=== PATIENT | female | born 1990 | race Caucasian/White ===

== ENCOUNTER 2018-08-21 14:59 | Outpatient (REF) | payer BC, SELFPAY ==
--- NOTE | 2018-08-21 14:20 | PAPFT_PTH ---
PATIENT: Maggi Wasserman [id number] AGE/SX: 27/F ROOM: RE08/21/[address]: Jack Boston V : 1990 BED: DIS: 08/21/2018 SPEC #: [id number] RECD: 08/22/18 12:50 STATUS: YAN WILLIE #: [id number] RUCHI: 08/21/18 14:[address]: Jack Boston V [facility] Cytology RECD BY: Erica Andres ENTERED: 08/22/18 12:51 SP TYPE: PAPFT OTHR DR: Aditi Franco Tissues: 1 - CX/ENDOCX FOR PAP SMEARS Procedures: PAP THIN PREP/[facility] Screening HPV DNA PROBE Comments: [id number] (CHLAMYDIA/GC)
[2018-08-21 21:25] LABS: Anion Gap 10.3 mmol/L (3-11); BUN 14 mg/dL (7-18); CO2 28.7 mmol/L (21.0-32.0); CREATININE 0.69 mg/dL (0.55-1.02); Calcium 9.2 mg/dL (8.5-10.1); Chloride 101 mmol/L (98-107); Glucose 82 mg/dL (70-100); Potassium 3.8 mmol/L (3.5-5.1); Sodium 140 mmol/L (136-145)
[2018-08-23 13:16] LABS: Chlamydia Result Negative; GC Result Negative; Specimen Description SEE COMMENTS
== END 2018-08-21 15:19 ==
LOC: NCHCN 14:59
PROVIDERS: PCP Physician Assistant Medical; Visit Provider Physician Assistant Medical
DX: I10 Essential (primary) hypertension (principal); Z11.3 Encounter for screening for infections with a predominantly sexual mode of transmission; Z12.4 Encounter for screening for malignant neoplasm of cervix; Z11.51 Encounter for screening for human papillomavirus (HPV); Z01.419 Encounter for gynecological examination (general) (routine) without abnormal findings
CPT/HCPCS: 80048; 87491; 87591; 88142; 87624

== ENCOUNTER 2020-01-15 11:45 | Outpatient (REF) | payer OTHER, SELFPAY ==
[2020-01-15 19:47] LABS: Abs Immature Grans 0.02 k/cumm (0.0-0.09); Absolute Basophil Count 0.02 k/cumm (0.0-0.2); Absolute Eosinophil Count 0.18 k/cumm (0.0-0.7); Absolute Lymphocyte Count 3.27 k/cumm (1.2-3.4); Absolute Monocyte Count 0.52 k/cumm (0.11-0.7); Absolute Neutrophil Count 5.42 k/cumm (1.2-6.7); Basophils % 0.2; Eosinophils % 1.9; HGB 15.1 g/dL (12.0-15.5); Immature Grans % 0.2 %; Lymphocytes % 34.7; Mean Corp. HGB Concentration 34.3 g/dL (32.0-36.0); Mean Corpuscular Hemoglobin 31.3 pg (27.0-33.0); Mean Corpuscular Volume 91.1 fL (80-95); Mean Platelet Volume 10.4 fL (8.0-11.0); Monocytes % 5.5; Neutrophils % 57.5; Platelet Count 358 x1000/uL (130-400); RBC 4.83 m/cumm (4.00-5.20); RBC Distribution Width 12.2 % (11.7-14.6); White Blood Cell Count 9.43 k/cumm (4.4-10.8)
[2020-01-15 20:28] LABS: ALT 28 U/L (14-59); AST 17 U/L (15-37); Albumin 4.3 g/dL (3.4-5.0); Alkaline Phosphatase 77 U/L (46-116); Anion Gap 11.8 mmol/L (3-11); BUN 15 mg/dL (7-18); Bilirubin, Total 0.5 mg/dL (0.2-1.0); CO2 26.2 mmol/L (21.0-32.0); CREATININE 0.62 mg/dL (0.55-1.02); Calcium 9.5 mg/dL (8.5-10.1); Calculated LDL 127 mg/dL (<100); Chloride 101 mmol/L (98-107); Cholesterol 222 mg/dL (<200); Glucose 88 mg/dL (74-106); HDL Cholesterol 79 mg/dL (40-60); Potassium 4.1 mmol/L (3.5-5.1); Sodium 139 mmol/L (136-145); TSH (W/Ref FT4) 1.79 uIU/mL (0.36-3.74); Total Protein 7.8 g/dL (6.4-8.2); Triglyceride 83 mg/dL (<150)
== END 2020-01-15 12:05 ==
LOC: NCHCN 11:45
PROVIDERS: PCP Physician Assistant Medical; Visit Provider Physician Assistant
DX: Z00.00 Encounter for general adult medical examination without abnormal findings (principal); I10 Essential (primary) hypertension
CPT/HCPCS: 80053; 80061; 84443; 85025

== ENCOUNTER 2020-04-26 19:48 | Outpatient (REF) | payer OTHER, SELFPAY ==
[2020-04-30 16:40] LABS: Patient Race White; SARS-CoV-2 RNA Undetected (Undetected); SARS-CoV-2 Specimen Source Nasal
== END 2020-04-26 20:08 ==
LOC: NCHCN 19:48
PROVIDERS: PCP Physician Assistant Medical; Visit Provider Nurse Practitioner Family
DX: Z20.828 Contact with and (suspected) exposure to other viral communicable diseases (principal)
CPT/HCPCS: U0003

== ENCOUNTER 2021-03-01 16:02 | Outpatient (REF) | payer OTHER, SELFPAY ==
[2021-03-01 19:45] LABS: Anion Gap 10.2 mmol/L (3-11); BUN 8 mg/dL (7-18); CO2 26.8 mmol/L (21.0-32.0); CREATININE 0.7 mg/dL (0.55-1.02); Calcium 9.5 mg/dL (8.5-10.1); Chloride 104 mmol/L (98-107); Glucose 96 mg/dL (74-106); Sodium 141 mmol/L (136-145)
[2021-03-03 10:52] LABS: HIV-1/2 Ag & Ab Screen Negative (Negative)
[2021-03-03 11:22] LABS: Hepatitis C Ab w Rflx HCV PCR Negative (Negative)
== END 2021-03-01 16:03 | disposition home or self-care (01) ==
LOC: NCHCN 16:02
PROVIDERS: PCP Physician Assistant Medical; Visit Provider Physician Assistant
DX: I10 Essential (primary) hypertension (principal); W46.1XXD Contact with contaminated hypodermic needle, subsequent encounter
CPT/HCPCS: 80048; 86803; 87389

== ENCOUNTER 2021-10-05 11:00 | Outpatient (REF) | payer OTHER, SELFPAY ==
--- NOTE | 2021-10-05 13:30 | PAPFT_PTH ---
PATIENT: Maggi Wasserman I LOC: [facility] U#:[id number] AGE/SX: 30/F ROOM: RE10/05/[address]: Cristin Field : 1990 BED: DIS: 10/05/2021 SPEC #: [id number] RECD: 10/06/21 12:44 STATUS: YAN REKassi #: [id number] RUCHI: 10/05/21 13:[address]: Cristin Field DEPT: [facility] Cytology RECD BY: Erica Andres ENTERED: 10/06/21 12:45 SP TYPE: PAPFT OTHR DR: Aditi Franco Tissues: 1 - CX/ENDOCX FOR PAP SMEARS Procedures: PAP THIN PREP/[facility] Screening HPV DNA PROBE Comments: [id number]
== END 2021-10-05 11:01 | disposition home or self-care (01) ==
LOC: NCHCN 11:00
PROVIDERS: PCP Physician Assistant Medical; Visit Provider Physician Assistant
DX: Z12.4 Encounter for screening for malignant neoplasm of cervix (principal); Z11.51 Encounter for screening for human papillomavirus (HPV); Z01.419 Encounter for gynecological examination (general) (routine) without abnormal findings
CPT/HCPCS: 88142; 87624

== ENCOUNTER 2022-04-07 15:44 | Outpatient (REF) | payer OTHER, SELFPAY ==
[2022-04-07 20:16] LABS: Anion Gap 7.9 mmol/L (3-11); BUN 15 mg/dL (7-18); CO2 26.1 mmol/L (21.0-32.0); CREATININE 0.6 mg/dL (0.55-1.02); Calcium 9.1 mg/dL (8.5-10.1); Chloride 101 mmol/L (98-107); Estimated GFR 122.23 (mL/min/1.73m2); Glucose 99 mg/dL (74-106); Potassium 3.9 mmol/L (3.5-5.1); Sodium 135 mmol/L (136-145)
== END 2022-04-07 15:45 | disposition home or self-care (01) ==
LOC: NCHCN 15:44
PROVIDERS: PCP Physician Assistant Medical; Visit Provider Physician Assistant
DX: I10 Essential (primary) hypertension (principal)
CPT/HCPCS: 80048